=== PATIENT | female | born 1990 | race Caucasian/White ===

== ENCOUNTER 2020-07-03 19:12 | Emergency (ER) | payer BC ==
[~2020-07-03] VITALS: Ht 162.6 cm; Wt 56.7 kg
[2020-07-03] MEDS ORDERED: DULOXETINE HCL20 MG PO (19:29)
[2020-07-03 19:53] LABS: URINE BILIRUBIN NEGATIVE (Negative); URINE BLOOD NEGATIVE (Negative); URINE CLARITY CLEAR; URINE COLOR STRAW; URINE GLUCOSE-RANDOM TRACE (Negative); URINE KETONES NEGATIVE (Negative); URINE LEUKOCYTES-REFLEX NEGATIVE (Negative); URINE NITRITE-REFLEX NEGATIVE (Negative); URINE PROTEIN NEGATIVE (Negative); URINE UROBILINOGEN 0.2 E.U./dl (0.2-1.0)
[2020-07-03 20:09] LABS: ABSOLUTE EOSINOPHILS 0.1 thou/uL (0.0-0.7); ABSOLUTE LYMPHOCYTES 0.9 thou/uL (0.8-5.3); ABSOLUTE MONOCYTES 0.4 thou/uL (0.0-1.2); ABSOLUTE NEUTROPHILS 3.3 thou/uL (1.6-8.1); BASOPHILS 0.5 %; EOSINOPHILS 1.8 %; HEMATOCRIT 37.7 % (37.0-47.0); HEMOGLOBIN 12.5 gm/dL (12.0-15.0); MCHC 33.3 g/dL (28.0-37.0); MCV 87.1 fL (80.0-100.0); MONOCYTES 8.1 %; MPV 9.1 fl. (7.2-11.1); NUCLEATED RBCS 0 /100WBC; PLATELET COUNT* 163 thou/uL (150-400); POLYS 70.6 %; RBC 4.33 mil/uL (4.20-5.00); RDW-CV 13.4 % (10.5-14.5); WBC 4.7 thou/uL (4.0-11.0)
[2020-07-03 20:16] LABS: CREATININE 0.7 mg/dL (0.6-1.3); POTASSIUM 4.2 mmol/L (3.5-5.1)
[2020-07-03 20:21] LABS: TOTAL BILIRUBIN 0.3 mg/dL (<0.1-1.0); TOTAL PROTEIN 7.4 g/dL (6.4-8.2)
[2020-07-03 21:19] LABS: ESR (SEDRATE) 1 mm/hr (0-20)
[2020-07-03 21:24] VITALS: BP 117/81
--- NOTE | 2020-07-05 17:01 | EKG ---
[place] [address] ELECTROCARDIOGRAM REPORT Name: NATALI FRANKLIN Room: [facility]#: [id number] Admission: 07/03/20 Attend Phys: Discharge: 07/03/20 Date of : 89 Date of Service: 07/03/201915 Report #: [id number] THIS REPORT FOR: //name// [facility] ED Test Date: 2020-07-03 Test Time: 19:16:19 Pat Name: NATALI FRANKLIN Department: Room: Gender: Flyer Maker: [place] : 1990 Requested By: Kalee Ly Order Number: [id number] Nikole MD: Damian Rojas Measurements Intervals [place] Rate: 96 P: 84 TN: 131 QRS: 38 QRSD: 82 T: 51 QT: 336 QTc: 425 Interpretive Statements Sinus rhythm RSR' in V1 or V2, probably normal variant No previous ECG available for comparison Electronically Signed On 07-05-2020 17:01:36 FIXING MACHINE OPERATOR by Damian Rojas [email or web address] <ELECTRONICALLY SIGNED> By: Damian Rojas MD, [facility] 07/05/20 170 15 15 Damian Rojas MD, FAC /EPI
== END 2020-07-03 21:24 | disposition home or self-care (01) ==
LOC: M.ERS 19:12
PROVIDERS: Personal Emergency Response Attendant
DX: F41.9 Anxiety disorder, unspecified (principal); R20.2 Paresthesia of skin; Z88.0 Allergy status to penicillin